=== PATIENT | male | born 1970 | race African-American/Black ===

== ENCOUNTER 2019-11-24 11:01 | Inpatient (IN) | payer MEDICARE, MEDICAID ==
[~2019-11-24] VITALS: Ht 170.2 cm; Wt 114.8 kg
[2019-11-24] MEDS ORDERED: AMLODIPINE BESY10 MG ORAL (11:11)
--- NOTE | 2019-11-24 11:15 | NUR ---
ED Nurse Note: Patient came into ED from Urgent care d/t tachycardia around 105. Patient had syncopal episode yesterday witnessed by , which lasted approximately 10 seconds. Patient AxO x 4, no s/s of acute distress. Patient on the cardiac nurse practitioner. Blood sent to lab.
--- NOTE | 2019-11-24 11:32 | Emergency Room Report ---
History of Present Illness General Chief Complaint: Palpitations Source: Patient Present Illness HPI Patient presents with reports of syncopal episode Patient had gone to an urgent care today reports that he had an evaluation the physician felt that his heart rate was too fast and patient sent to the ER Patient describes 2 episodes of syncope yesterday around noontime patient was walking in a grocery store Did not have any symptoms prior to the event And after the second syncopal episode went home Patient went today for routine checkup and was sent to the ER Denies any headache denies any focal weakness denies any change in speech Allergies: Coded Allergies: No Known Allergies (Unverified , 11/24/19) Patient History Past Medical History: see triage record Reviewed Nursing Documentation: PMH: Agreed; PSxH: Agreed Nursing Documentation-PMH Past Medical History: No History, Except For Hx Hypertension: Yes Review of Systems All Other Systems: negative except mentioned in HPI Physical Exam Vital Signs Date Time Temp Pulse Resp B/P (MAP) Pulse Ox O2 Delivery O2 Flow Rate FiO2 11/24/19 11:08 97.3 105 18 138/85 (102) 94 Room Air Sp02 EP Interpretation: reviewed, normal General Appearance: well appearing, no apparent distress Head: normocephalic, atraumatic Eyes: bilateral eye PERRL, bilateral eye EOMI ENT: hearing grossly normal, normal pharynx, TMs + canals normal, uvula midline Neck: full range of motion, supple, no meningismus, no bony tend Respiratory: lungs clear, normal breath sounds, no rhonchi, no respiratory distress, no retraction, no accessory muscle use Cardiovascular #1: normal peripheral pulses, regular rate, rhythm, no edema, no gallop, no JVD, no murmur Gastrointestinal: normal bowel sounds, non tender, soft, no mass, no organomegaly, non-distended, no guarding, no hernia, no pulsatile mass, no rebound Genitourinary: no CVA tenderness Musculoskeletal: normal inspection Neurologic: motor strength/tone normal, quality assurance coordinator III-XII nml as tested, oriented x3 , sensory intact, responsive Psychiatric: mood/affect normal Skin: no rash Lymphatic: normal inspection, no adenopathy Medical Decision Making Diagnostic Impression: Primary Impression: Syncope Additional Impression: Tachycardia ER Course Patient is a fairly complex patient with multiple differential to consideration including but not limited to cardiac cardiopulmonary and vascular emergencies Patient is oriented and GCS 15 does not meet criteria for CT head Given these findings patient's EKG however is abnormal Given the description of the symptoms and episodes will require further inpatient care Labs Test 11/24/19 11:43 11/24/19 17:55 11/24/19 19:00 11/25/19 10:45 White Blood Count 5.9 K/UL (4.8-10.8) Red Blood Count 5.00 M/UL (4.70-6.10) Hemoglobin 14.8 G/DL (14.2-18.0) Hematocrit 44.0 % (42.0-52.0) Mean Corpuscular Volume 88 FL (80-99) Mean Corpuscular Hemoglobin 29.6 PG (27.0-31.0) Mean Corpuscular Hemoglobin Concent 33.6 G/DL (32.0-36.0) Red Cell Distribution Width 13.4 % (11.6-14.8) Platelet Count 178 K/UL (150-450) Mean Platelet Volume 7.1 FL (6.5-10.1) Neutrophils (%) (Auto) 52.7 % (45.0-75.0) Lymphocytes (%) (Auto) 38.6 % (20.0-45.0) Monocytes (%) (Auto) 6.6 % (1.0-10.0) Eosinophils (%) (Auto) 1.1 % (0.0-3.0) Basophils (%) (Auto) 1.0 % (0.0-2.0) Sodium Level 140 MMOL/L (136-145) Potassium Level 3.5 MMOL/L (3.5-5.1) Chloride Level 102 MMOL/L (98-107) Carbon Dioxide Level 24 MMOL/L (21-32) Anion Gap 14 mmol/L (5-15) Blood Urea Nitrogen 6 mg/dL (7-18) Creatinine 0.7 MG/DL (0.55-1.30) Estimat Glomerular Filtration Rate > 60 mL/min (>60) Glucose Level 96 MG/DL (74-106) Calcium Level 8.9 MG/DL (8.5-10.1) Total Bilirubin 0.7 MG/DL (0.2-1.0) Aspartate Amino Transf (AST/SGOT) 121 U/L (15-37) Alanine Aminotransferase (ALT/SGPT) 57 U/L (12-78) Alkaline Phosphatase 94 U/L (46-116) Total Creatine Kinase 150 U/L (26-308) Troponin I 0.000 ng/mL (0.000-0.056) 0.000 ng/mL (0.000-0.056) Pro-B-Type Natriuretic Peptide 202 pg/mL (0-125) Total Protein 8.0 G/DL (6.4-8.2) Albumin 3.0 G/DL (3.4-5.0) Globulin 5.0 g/dL Albumin/Globulin Ratio 0.6 (1.0-2.7) Lipase 140 U/L (73-393) Erythrocyte Sedimentation Rate 46 MM/HR (0-20) Hemoglobin A1c 6.2 % (4.3-6.0) Vitamin B12 Level 518 PG/ML (193-986) Folate 4.7 NG/ML (8.6-58.9) Thyroid Stimulating Hormone (TSH) 6.550 uiU/mL (0.358-3.740) Rapid Plasma Reagin Non reactive (Non Reactive) Urine Opiates Screen Negative (NEGATIVE) Urine Barbiturates Screen Negative (NEGATIVE) Phencyclidine (PCP) Screen Negative (NEGATIVE) Urine Amphetamines Screen Negative (NEGATIVE) Urine Benzodiazepines Screen Negative (NEGATIVE) Urine Cocaine Screen Negative (NEGATIVE) Urine Marijuana (THC) Screen Positive (NEGATIVE) Test 11/25/19 19:00 11/26/19 03:11 Troponin I 0.006 ng/mL (0.000-0.056) 0.006 ng/mL (0.000-0.056) White Blood Count 5.3 K/UL (4.8-10.8) Red Blood Count 5.04 M/UL (4.70-6.10) Hemoglobin 14.7 G/DL (14.2-18.0) Hematocrit 43.9 % (42.0-52.0) Mean Corpuscular Volume 87 FL (80-99) Mean Corpuscular Hemoglobin 29.2 PG (27.0-31.0) Mean Corpuscular Hemoglobin Concent 33.5 G/DL (32.0-36.0) Red Cell Distribution Width 12.9 % (11.6-14.8) Platelet Count 142 K/UL (150-450) Mean Platelet Volume 8.2 FL (6.5-10.1) Neutrophils (%) (Auto) 55.5 % (45.0-75.0) Lymphocytes (%) (Auto) 32.6 % (20.0-45.0) Monocytes (%) (Auto) 9.5 % (1.0-10.0) Eosinophils (%) (Auto) 1.8 % (0.0-3.0) Basophils (%) (Auto) 0.6 % (0.0-2.0) Sodium Level 137 MMOL/L (136-145) Potassium Level 3.8 MMOL/L (3.5-5.1) Chloride Level 100 MMOL/L (98-107) Carbon Dioxide Level 24 MMOL/L (21-32) Anion Gap 13 mmol/L (5-15) Blood Urea Nitrogen 8 mg/dL (7-18) Creatinine 0.8 MG/DL (0.55-1.30) Estimat Glomerular Filtration Rate > 60 mL/min (>60) Glucose Level 102 MG/DL (74-106) Uric Acid 4.4 MG/DL (2.6-7.2) Calcium Level 9.6 MG/DL (8.5-10.1) Phosphorus Level 4.5 MG/DL (2.5-4.9) Magnesium Level 1.7 MG/DL (1.8-2.4) Iron Level 84 ug/dL (50-175) Total Iron Binding Capacity 265 ug/dL (250-450) Percent Iron Saturation 32 % (15-50) Unsaturated Iron Binding 181 ug/dL (112-346) Ferritin 595 NG/ML (8-388) Total Bilirubin 1.0 MG/DL (0.2-1.0) Aspartate Amino Transf (AST/SGOT) 79 U/L (15-37) Alanine Aminotransferase (ALT/SGPT) 44 U/L (12-78) Alkaline Phosphatase 83 U/L (46-116) Total Creatine Kinase 117 U/L (26-308) C-Reactive Protein, Quantitative 1.1 mg/dL (0.00-0.90) Pro-B-Type Natriuretic Peptide 94 pg/mL (0-125) Total Protein 7.8 G/DL (6.4-8.2) Albumin 3.0 G/DL (3.4-5.0) Globulin 4.8 g/dL Albumin/Globulin Ratio 0.6 (1.0-2.7) Triglycerides Level 96 MG/DL (30-150) Cholesterol Level 163 MG/DL (< 200) LDL Cholesterol 104 mg/dL (<100) HDL Cholesterol 46 MG/DL (40-60) Cholesterol/HDL Ratio 3.5 (3.3-4.4) Free Thyroxine 1.15 NG/DL (0.76-1.46) Free Triiodothyronine 3.4 pg/mL (2.3-4.2) EKG Diagnostic Results Rate: normal Rhythm: NSR ST Segments: other - Nonspecific ST and T wave changes Rhythm Strip Diag. Results EP Interpretation: yes Rate: 88 Rhythm: NSR, no PVC's, no ectopy Chest X-Ray Diagnostic Results Chest X-Ray Diagnostic Results : Chest X-Ray Ordered: Yes # of Views/Limited/Complete: 1 View Indication: Chest Pain EP Interpretation: Yes Interpretation: no consolidation, no effusion, no pneumothorax Impression: No acute disease Electronically Signed by: Sherry Mcnamara DO Last Vital Signs Date Time Temp Pulse Resp B/P (MAP) Pulse Ox O2 Delivery O2 Flow Rate FiO2 11/24/19 11:08 97.3 105 18 138/85 (102) 94 Room Air Status: improved Disposition: ADMITTED INPATIENT Condition: Serious Sherry Mcnamara DO Nov 24, 2019 11:32
[2019-11-24 11:45] VITALS: BP 138/85
[2019-11-24 12:09] LABS: EOSINOPHILS % (AUTO) 1.1 % (0.0-3.0); HEMOGLOBIN 14.8 G/DL (14.2-18.0); LYMPHOCYTES % (AUTO) 38.6 % (20.0-45.0); MEAN CORPUSCULAR VOLUME 88 FL (80-99); MONOCYTES % (AUTO) 6.6 % (1.0-10.0); NEUTROPHILS % (AUTO) 52.7 % (45.0-75.0); PLATELET COUNT 178 K/UL (150-450); RED CELL DISTRIBUTION WIDTH 13.4 % (11.6-14.8); WHITE BLOOD COUNT 5.9 K/UL (4.8-10.8)
[2019-11-24 12:31] LABS: ANION GAP 14 mmol/L (5-15); BLOOD UREA NITROGEN 6 mg/dL (7-18); CALCIUM 8.9 MG/DL (8.5-10.1); CARBON DIOXIDE 24 MMOL/L (21-32); CHLORIDE 102 MMOL/L (98-107); CREATININE 0.7 MG/DL (0.55-1.30); POTASSIUM 3.5 MMOL/L (3.5-5.1); SODIUM 140 MMOL/L (136-145)
[2019-11-24 12:43] LABS: ALANINE AMINOTRANSFERASE 57 U/L (12-78); ALBUMIN/GLOBULIN RATIO 0.6 (1.0-2.7); ALKALINE PHOSPHATASE 94 U/L (46-116); ASPARTATE AMINO TRANSFERASE 121 U/L (15-37); BILIRUBIN,TOTAL 0.7 MG/DL (0.2-1.0); CREATINE KINASE 150 U/L (26-308)
--- NOTE | 2019-11-24 12:46 | Diagnostic Imaging Report ---
Indication: Chest pain Technique: One view of the chest Comparison: none Findings: The heart is upper limits of normal in size. Lungs and pleural spaces are clear. Impression: No acute process
[2019-11-24 13:45] VITALS: BP 136/82
--- NOTE | 2019-11-24 14:40 | NUR ---
ED Nurse Note: Dr. Caldera at bedside.
[2019-11-24 15:00] VITALS: BP 132/80
--- NOTE | 2019-11-24 15:26 | NUR ---
ED Nurse Note: Report given to Shereen PEGUERO.
--- NOTE | 2019-11-24 15:40 | NUR ---
NURSE NOTES: Patient arrived on Tele floor at 15:40 via gurney, Received report from Thomas/RN. Patient is awake and alert x4, sitting on bed. On room air, no acute distress//SOB noted. Breathing even and unlabored. Able to make needs known, Denies pain at this time. IV on left hand patent and asymptomatic. Belonging check done with transferring nurse. playground monitor placed, Vital signs taken. Family at bed side. Will contact MD for admission order.
[2019-11-24 15:45] VITALS: BP 150/89
--- NOTE | 2019-11-24 16:30 | Consultation ---
Consult Note Consult Note NEUROLOGY CONSULTATION: HISTORY: Mr. Bertin Nino is a 49-year-old, right-handed, black gentleman, who has a long history of hypertension and borderline diabetes mellitus. He was functioning well until November 23, 2019 when he was getting out of his car and suddenly passed out. As per his who was with him he was out for about 10 seconds and then rapidly regained consciousness. A few minutes later he had a similar event. He denies any symptoms prior to these episodes of passing out and specifically denies any lightheadedness or dizziness. Following the episodes he rapidly regained consciousness and the mind was quite clear when he woke up. He denies any associated weakness on one side or the other, numbness on one side of the other, problems with speech, problems with language, problems with vision, or palpitations. He denies any prior episodes of loss of consciousness. PAST HISTORY: Hypertension for numerous years. Borderline diabetes mellitus for numerous years. Obesity. FAMILY HISTORY: Multiple family members have high blood pressure and diabetes mellitus. PERSONAL HISTORY: Home: He lives at home with his and 4 children. 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 Habits: He denies use of illicit drugs. He consumes approximately 20 cigarettes/day. He consumes large quantities of alcohol on weekends. PRESENT MEDICATIONS: He takes blood pressure medications at home the names of which she cannot remember. PHYSICAL EXAMINATION: GENERAL: He is a well-developed well-nourished obese black gentleman sitting up at the edge of his bed in no acute distress. VITAL SIGNS: Pulse: 102/min Blood pressure: 132/80 mmHg Temperature: 97.7 F Respirations: Per minute HEAD: Normocephalic and atraumatic. NECK: No neck rigidity was observed. EENT examination: Benign. NEUROLOGICAL EXAMINATION: MENTAL STATUS EXAMINATION: The patient was alert and awake. The patient was oriented to person and time. He had no idea of where he was located. The patient was able to recall 3/3 words immediately after 1 minute and after three minutes. The patient was able to remember Presidents Trump and Obama only. The patient's mathematical skills were paired. His visuospatial function was also impaired. SPEECH: No dysarthria was noted. LANGUAGE: He had an anomia for low-frequency words. However it is unclear what his educational level is. CRANIAL NERVE EXAMINATION: II: The visual lewis were intact on confrontation testing. III, IV, and : Extraocular movements were full. Pupils were 3 mm in diameter equal, round, regular, and reactive to light. V: Facial sensations were normal, and the temporales, masseters, and pterygoids functioned normally. VII: Facial expressions were normal and no facial asymmetry was noted. VIII: Hearing was normal bilaterally and no nystagmus was observed. IX: The palate moved symmetrically on phonation. X: No hoarseness of voice was observed. XI: The sternocleidomastoids and trapezii functioned normally. XII: The tongue was in the midline without any fasciculations or atrophy. MOTOR SYSTEM: The tone was normal in all four extremities. Examination of muscle mass revealed no focal wasting. Examination of power revealed G 5/5 power in all muscle groups. SENSORY EXAMINATION: Sensations to pin prick, light touch, and graphesthesia were normal. REFLEXES: 2++ and bilaterally symmetrical at the biceps, triceps, brachioradialis, and knees. 1++ at both ankles. The plantar responses were flexor bilaterally. COORDINATION: Svehgl-te-ymnf and bxqn-vo-wxtl testing were performed well. On Romberg test he swayed but did not fall to one side of the other. STANCE: Normal. GAIT: Normal regular gait. DIAGNOSTIC IMPRESSION: 1. Mr. Bertin Nino is a 49-year-old, right-handed, black gentleman, who has a long history of hypertension and borderline diabetes mellitus. On 11/23/2019 he had 2 episodes of passing out without any warning. He rapidly regained consciousness following those episodes. 2. On neurological examination, at this time, he is disoriented to his location, has problems with memory, has problems with higher cognitive function, has problems with visuospatial function, and has a mild anomia. He however does not demonstrate any focal or lateralizing findings on his neurological examination. 3. Patient's history and neurological examination are most consistent with 2 possible syncopal episodes 1 after the other lasting approximately 10 seconds at a time. The etiology for these episodes is unclear at this point in time. RECOMMENDATIONS: 1. The patient and his family were given an explanation of the above-mentioned findings. 2. The patient should have cardiac monitoring to determine if a cardiac arrhythmia was responsible for his episodes of loss of consciousness. 3. A cerebrovascular noninvasive profile should be performed to evaluate the patient for hemodynamically significant carotid disease. 4. He should be worked up thoroughly for treatable causes of syncope. 5. An EEG will be ordered to evaluate the patient for interictal phenomena. 6. The patient will be observed closely and depending on how he fares over the next day or so further recommendations will be given. Thank you for entrusting me with the care of Mr. Nino. I shall follow him with you. Jonathan Guerra M.D., M.S.P.H. Neurologist & Clinical Neurophysiologist Jonathan Guerra MD Nov 24, 2019 16:30
--- NOTE | 2019-11-24 19:45 | NUR ---
HAND-OFF: Report given to Irma/ALICIA, Patient in stable condition. Endorsed plan of care.
[2019-11-24 20:00] VITALS: BP 146/89
--- NOTE | 2019-11-24 21:20 | NUR ---
NURSE NOTES: Received pt from SUDHIR Dawson. Patient is awake and alert x4, sitting up in bed. On room air, no acute distress//SOB noted. Breathing even and unlabored. Able to make needs known, Denies pain at this time. Will continue plan of care
[2019-11-25] VITALS: BP 159/83
[2019-11-25 04:00] VITALS: BP 137/82
--- NOTE | 2019-11-25 04:30 | History and Physical Report ---
DATE OF ADMISSION: 11/24/2019 HISTORY OF PRESENT ILLNESS: The patient was admitted for basically a syncopal episode yesterday while grocery shopping. The patient also complained of palpitation, rule out tachycardia. The patient also has bilateral conjunctivitis. The patient was admitted for hypokalemia with syncopal episode. The patient denies chest pain. Denies nausea, vomiting, or diarrhea. No fever or chills. No shortness of breath. Denies cough. Denies cold symptoms. PAST MEDICAL HISTORY: Hypertension. PAST SURGICAL HISTORY: None. FAMILY HISTORY: Noncontributory. SOCIAL HISTORY: No history of smoking, alcohol, or illicit drugs. REVIEW OF SYSTEMS: HEENT: Denies headaches. PULMONARY: Denies shortness of breath. Denies cough. CARDIOVASCULAR: Denies chest pain. GASTROINTESTINAL: Denies nausea, vomiting, or diarrhea. EXTREMITIES: Denies pain. CENTRAL NERVOUS SYSTEM: Denies change in speech pattern. PHYSICAL EXAMINATION: VITAL SIGNS: Basically temperature 97.3, pulse is 104, blood pressure 138/85. HEENT: PERRLA. The patent has bilateral conjunctivitis. NECK: Supple. No lymphadenopathy. CHEST: Clear to auscultation. CARDIOVASCULAR: Tachycardic. GASTROINTESTINAL: Soft, nontender, nondistended. Positive bowel sounds. EXTREMITIES: Edema. Moves all four extremities. Sensory intact to light touch. The dorsal pedis pulses are present. LABORATORY DATA: WBC of 5.9, hemoglobin of 14.8, and platelets of 178,000. Sodium 140, potassium 3.4, chloride 102, glucose 96, BUN of 6, and creatinine 0.7. ASSESSMENT AND PLAN: Syncope, hypokalemia, rule out tachycardia, palpitation. I have asked basically Dr. Camilo, Dr. Farmer, and Dr. Guerra to see the patient for treatment of the low potassium as well as for syncopal workup. Sherry Caldera M.D. DR: Camelia JOB#: [id number] CC:
--- NOTE | 2019-11-25 07:55 | NUR ---
NURSE NOTES: Received report from Zaina/RN, Observed patient sitting up on bed, resting comfortably. On room air, no acute distress/SOB noted. IV on left hand 20G, patent, and asymptomatic. Bed in low position and locked, Bed alarm engaged, side-rails up x3. Call light within reach, Encouraged to use call light when needed. Will continue plan of care.
[2019-11-25 08:00] VITALS: BP 137/93
--- NOTE | 2019-11-25 08:04 | NUR ---
HAND-OFF: Report given to SUDHIR Regan.
--- NOTE | 2019-11-25 09:42 | Diagnostic Imaging Report ---
Indication: Reason For Exam: SYNCOPE, dizziness, headache Technique: Grayscale and duplex images of the extracranial carotid circulation were obtained Comparison: None Findings: Bilaterally, grayscale and duplex images demonstrate minimal atherosclerotic plaquing resulting in less than 50% diameter narrowing. Normal Doppler flow velocities and waveforms. Patent bilateral vertebral arteries, antegrade flow Impression: Less than 50% diameter stenosis bilaterally All stenosis was measured based on the NASCET criteria. Velocity criteria are extrapolated from diameter data as defined by the Society of radiologists in ultrasound consensus conference. Radiology 2003:229; 340-346
--- NOTE | 2019-11-25 09:57 | Cardiac Electrophysiology PN ---
Subjective Subjective [id number] Objective Last 24 Hour Vital Signs Date Time Temp Pulse Resp B/P (MAP) Pulse Ox O2 Delivery O2 Flow Rate FiO2 11/25/19 04:00 99.0 97 18 137/82 (100) 97 11/25/19 04:00 82 11/25/19 00:00 99.0 103 22 159/83 (108) 97 11/25/19 00:00 90 11/24/19 21:00 Room Air 11/24/19 20:00 99.0 111 22 146/89 (108) 97 11/24/19 20:00 106 11/24/19 16:00 Room Air 11/24/19 15:45 97.3 132 21 150/89 (109) 94 11/24/19 15:30 98.0 102 17 138/84 99 Room Air 11/24/19 15:00 97.7 102 18 132/80 98 Room Air 11/24/19 13:45 97.8 101 18 136/82 97 Room Air 11/24/19 11:45 97.3 104 18 138/85 94 Room Air 11/24/19 11:08 97.3 105 18 138/85 (102) 94 Room Air Intake and Output 11/24/19 11/25/19 19:00 07:00 Intake Total 0 ml Output Total 3 ml Balance 0 ml -3 ml Intake Oral 0 ml Output Urine Total 3 ml # Voids 1 # Bowel Movements 1 Laboratory Tests Test 11/24/19 11:43 11/24/19 17:55 11/24/19 19:00 White Blood Count 5.9 K/UL (4.8-10.8) Red Blood Count 5.00 M/UL (4.70-6.10) Hemoglobin 14.8 G/DL (14.2-18.0) Hematocrit 44.0 % (42.0-52.0) Mean Corpuscular Volume 88 FL (80-99) Mean Corpuscular Hemoglobin 29.6 PG (27.0-31.0) Mean Corpuscular Hemoglobin Concent 33.6 G/DL (32.0-36.0) Red Cell Distribution Width 13.4 % (11.6-14.8) Platelet Count 178 K/UL (150-450) Mean Platelet Volume 7.1 FL (6.5-10.1) Neutrophils (%) (Auto) 52.7 % (45.0-75.0) Lymphocytes (%) (Auto) 38.6 % (20.0-45.0) Monocytes (%) (Auto) 6.6 % (1.0-10.0) Eosinophils (%) (Auto) 1.1 % (0.0-3.0) Basophils (%) (Auto) 1.0 % (0.0-2.0) Sodium Level 140 MMOL/L (136-145) Potassium Level 3.5 MMOL/L (3.5-5.1) Chloride Level 102 MMOL/L (98-107) Carbon Dioxide Level 24 MMOL/L (21-32) Anion Gap 14 mmol/L (5-15) Blood Urea Nitrogen 6 mg/dL (7-18) L Creatinine 0.7 MG/DL (0.55-1.30) Estimat Glomerular Filtration Rate > 60 mL/min (>60) Glucose Level 96 MG/DL (74-106) Calcium Level 8.9 MG/DL (8.5-10.1) Total Bilirubin 0.7 MG/DL (0.2-1.0) Aspartate Amino Transf (AST/SGOT) 121 U/L (15-37) H Alanine Aminotransferase (ALT/SGPT) 57 U/L (12-78) Alkaline Phosphatase 94 U/L (46-116) Total Creatine Kinase 150 U/L (26-308) Troponin I 0.000 ng/mL (0.000-0.056) Pro-B-Type Natriuretic Peptide 202 pg/mL (0-125) H Total Protein 8.0 G/DL (6.4-8.2) Albumin 3.0 G/DL (3.4-5.0) L Globulin 5.0 g/dL Albumin/Globulin Ratio 0.6 (1.0-2.7) L Pending Lipase 140 U/L (73-393) Erythrocyte Sedimentation Rate 46 MM/HR (0-20) H Hemoglobin A1c 6.2 % (4.3-6.0) H Total Protein (PEP) Pending Albumin (PEP) Pending Globulin (PEP) Pending [id number]-[id number] Pending Qfvzv-8-Gtgrufgmy Pending Beta Globulins Pending Beta Gamma Globulin Pending PEP Abnormal Protein Bands Pending Protein Electrophoresis Interpret Pending Vitamin B12 Level 518 PG/ML (193-986) Vitamin D 25-Hydroxy Pending 25-Hydroxy Vitamin D2 Pending 25-Hydroxy Vitamin D3 Pending Folate 4.7 NG/ML (8.6-58.9) L Thyroid Stimulating Hormone (TSH) 6.550 uiU/mL (0.358-3.740) Rapid Plasma Reagin Pending Urine Opiates Screen Negative (NEGATIVE) Urine Barbiturates Screen Negative (NEGATIVE) Phencyclidine (PCP) Screen Negative (NEGATIVE) Urine Amphetamines Screen Negative (NEGATIVE) Urine Benzodiazepines Screen Negative (NEGATIVE) Urine Cocaine Screen Negative (NEGATIVE) Urine Marijuana (THC) Screen Positive (NEGATIVE) Wes Pereyra MD Nov 25, 2019 09:57
[2019-11-25 12:00] VITALS: BP 139/81
--- NOTE | 2019-11-25 13:22 | NUR ---
CASE MANAGEMENT:REVIEW 49 YR OLD MALE PRESENETD TO ER CC: SENT FROM URGENT CARE FOR SYNCOPE AND HIGH HEART RATE SI: SYNCOPE 97.4 105 18 138/85 94% ON RA ESR+46 TROPONIN(-) URINE(+) THC IS: CHEST XRAY : TO TELEMETRY IS: NORVASC PO BID CAROTID DUPLEX 2DECHO ORTHOSTATIC VS EEG PLAN: CARDIAC AND NEURO CONSULT
--- NOTE | 2019-11-25 14:05 | Consultation ---
Consult Note Consult Note asked to eval by Dr Baugh for BP management Patient presents with reports of syncopal episode Patient had gone to an urgent care today reports that he had an evaluation the physician felt that his heart rate was too fast and patient sent to the ER Patient describes 2 episodes of syncope yesterday around noontime patient was walking in a grocery store Did not have any symptoms prior to the event And after the second syncopal episode went home Patient went today for routine checkup and was sent to the ER Denies any headache denies any focal weakness denies any change in speech interviewed examined- data reviewed . Assessment/Plan HTN DM Obese Syncope ? Sz Forgetfulness Low folate Folic acid EEG Low CHO diet per consultants Waldo Farmer MD Nov 25, 2019 14:05
--- NOTE | 2019-11-25 15:45 | NUR ---
NURSE NOTES: Asked Dr. Caldera to have CT order. No new order at this time.
[2019-11-25 16:00] VITALS: BP 149/93
--- NOTE | 2019-11-25 16:30 | Consultation ---
DATE OF CONSULTATION: 11/25/2019 CARDIOLOGY CONSULTATION CONSULTING PHYSICIAN: Wes Camilo M.D. REFERRING PHYSICIAN: Sherry Caldera M.D. REASON FOR CONSULTATION: Syncope and tachycardia. HISTORY OF PRESENT ILLNESS: The patient is a 49-year-old gentleman with history of hypertension and borderline diabetes. He was getting out of his car and suddenly passed out. Per his , he was out for about 10 seconds and rapidly regained consciousness. Few minutes later, he had another similar event. The patient did not have any chest pain, palpitation, or shortness of breath. The patient was seen at Urgent Care and was sent to the hospital for further evaluation. The patient was also tachycardic. His EKG, however, shows sinus rhythm with left atrial enlargement and only sinus tachycardia with no acute ST-T wave abnormalities. At the time of my evaluation, the patient denies any chest pain, palpitation, or shortness of breath. The patient was already evaluated by neurologist, Dr. Guerra. REVIEW OF SYSTEMS: Review of systems was negative other than what was mentioned in history of present illness. PAST MEDICAL HISTORY: As mentioned above. FAMILY HISTORY: Noncontributory. SOCIAL HISTORY: Lives with his . Does not smoke or drink alcohol. PHYSICAL EXAMINATION: VITAL SIGNS: Blood pressure is 137/82, pulse is 82, respirations 18, and temperature is 100. HEAD AND NECK: Showed no JVD. LUNGS: Clear. CARDIOVASCULAR: Regular S1 and S2 with no gallop or murmur. ABDOMEN: Soft. EXTREMITIES: No pitting edema. LABORATORY AND DIAGNOSTIC DATA: His EKG shows sinus tachycardia at 104, left atrial enlargement, and poor R-wave progression. His labs show white count 5.9, hemoglobin of 14.8, hematocrit of 44, and platelet count of 178,000. Sodium 140, potassium 3.5, BUN of 16.7, and glucose of 96. Troponin is negative. TSH is 6.55. ASSESSMENT AND PLAN: 1. Status post two syncopal episodes of sudden onset. The patient never had prior history of syncope. We will completely rule out MO protocol and get echocardiogram as well as carotid duplex for further evaluation. The patient is also evaluated by Dr. Guerra. His urine toxicology screen is positive only for marijuana. 2. Hypertension. The patient does not remember the name of his blood pressure medications. We will start the patient on amlodipine 5 mg b.i.d., add p.r.n. clonidine as well. 3. Obesity. Thank you very much, Dr. Caldera, for allowing me to participate in the care of this patient. Please do not hesitate to contact me for any questions regarding my evaluation. Wes Camilo M.D. DR: CRISTOBAL JOB#: [id number] CC:
[2019-11-25] MEDS: Docusate 100mg cap ORAL SCH (17:13)
--- NOTE | 2019-11-25 18:24 | NUR ---
NURSE NOTES: Dr. Guerra stated no need for CT for syncope.
--- NOTE | 2019-11-25 18:36 | NUR ---
NURSE NOTES: Patient asked for Nicotine patch to Dr. Guerra. Dr. Guerra told me to ask Dr. Caldera. Asked Dr. Caldera, regarding nicotine patch, refused.
--- NOTE | 2019-11-25 18:40 | Neurology Progress Note ---
Interim History Interim History Interim History Mr. Bertin Nino is a 49-year-old, right-handed, black gentleman, who has a long history of hypertension and borderline diabetes mellitus. On 11/23/2019 he had 2 episodes of passing out without any warning. He rapidly regained consciousness following those episodes. He feels much better today. He denies any dizziness, lightheadedness, or sensation that he may pass out. He also feels that his mind is clearer. He is feeling jittery as he has not smoked since he has been in the hospital. He denies any new neurological symptoms. Review of Systems Neuro Review of Systems Benign. Objective Physical Exam Last Vital Signs Date Time Temp Pulse Resp B/P (MAP) Pulse Ox O2 Delivery O2 Flow Rate FiO2 11/25/19 17:13 84 149/93 11/25/19 16:00 97.9 18 99 11/25/19 09:00 Room Air Laboratory Tests Test 11/24/19 19:00 11/25/19 10:45 Urine Opiates Screen Negative (NEGATIVE) Urine Barbiturates Screen Negative (NEGATIVE) Phencyclidine (PCP) Screen Negative (NEGATIVE) Urine Amphetamines Screen Negative (NEGATIVE) Urine Benzodiazepines Screen Negative (NEGATIVE) Urine Cocaine Screen Negative (NEGATIVE) Urine Marijuana (THC) Screen Positive (NEGATIVE) H Troponin I 0.000 ng/mL (0.000-0.056) Neurologic Exam Objective PHYSICAL EXAMINATION: GENERAL: He is a well-developed well-nourished obese black gentleman sitting up at the edge of his bed in no acute distress. HEAD: Normocephalic and atraumatic. NECK: No neck rigidity was observed. EENT examination: Benign. NEUROLOGICAL EXAMINATION: MENTAL STATUS EXAMINATION: The patient was alert and awake. The patient was oriented to person and time. He could not remember the name of the hospital. The patient was able to recall 3/3 words immediately after 1 minute and after three minutes. The patient was able to remember [employer] through [facility]. The patient's mathematical skills were impaired. His visuospatial function was also impaired. SPEECH: No dysarthria was noted. LANGUAGE: He had an anomia for low-frequency words. However it is unclear what his educational level is. CRANIAL NERVE EXAMINATION: II: The visual lewis were intact on confrontation testing. III, IV, and : Extraocular movements were full. Pupils were 3 mm in diameter equal, round, regular, and reactive to light. V: Facial sensations were normal, and the temporales, masseters, and pterygoids functioned normally. VII: Facial expressions were normal and no facial asymmetry was noted. VIII: Hearing was normal bilaterally and no nystagmus was observed. IX: The palate moved symmetrically on phonation. X: No hoarseness of voice was observed. XI: The sternocleidomastoids and trapezii functioned normally. XII: The tongue was in the midline without any fasciculations or atrophy. MOTOR SYSTEM: The tone was normal in all four extremities. Examination of muscle mass revealed no focal wasting. Examination of power revealed G 5/5 power in all muscle groups. SENSORY EXAMINATION: Sensations to pin prick, light touch, and graphesthesia were normal. REFLEXES: 2++ and bilaterally symmetrical at the biceps, triceps, brachioradialis, and knees. 1++ at both ankles. The plantar responses were flexor bilaterally. COORDINATION: Hcjxoz-af-josp and jrmz-dy-xlzh testing were performed well. On Romberg test he swayed but did not fall to one side of the other. STANCE: Normal. GAIT: Normal regular gait. Impression/Recommendations Diagnostic Impression DIAGNOSTIC IMPRESSION: 1. Mr. Bertin Nino is a 49-year-old, right-handed, black gentleman, who has a long history of hypertension and borderline diabetes mellitus. On 11/23/2019 he had 2 episodes of passing out without any warning. He rapidly regained consciousness following those episodes. 2. He feels much better today. He denies any dizziness, lightheadedness, or sensation that he may pass out. He also feels that his mind is clearer. He is feeling jittery as he has not smoked since he has been in the hospital. He denies any new neurological symptoms. 3. On neurological examination, at this time, he is disoriented to his location, has problems with memory, has problems with higher cognitive function, has problems with visuospatial function, and has a mild anomia. He however does not demonstrate any focal or lateralizing findings on his neurological examination. 4. Patient's history and neurological examination are most consistent with 2 possible syncopal episodes 1 after the other lasting approximately 10 seconds at a time. The etiology for these episodes is unclear at this point in time. 5. He still has some cognitive dysfunction. This may be related to marijuana use that he did not disclose to me but was discovered on his urine toxicology screen. Recommendations RECOMMENDATIONS: 1. The patient was given an explanation of the above- mentioned findings. 2. He should be given a nicotine patch as he is withdrawing from nicotine. 3. Continue cardiac monitoring. 4. Await cerebrovascular noninvasive profile to evaluate for hemodynamically significant carotid disease. 5. Await EEG to evaluate for interictal phenomena. 6. Observ closely . Jonathan Guerra M.D., M.S.P.H. Neurologist & Clinical Neurophysiologist Jonathan Guerra MD Nov 25, 2019 18:40
--- NOTE | 2019-11-25 19:30 | NUR ---
HAND-OFF: Report given to Selene/RN, Patient is in stable condition, Endorsed plan of care.
--- NOTE | 2019-11-25 19:36 | NUR ---
NURSE NOTES: Received report from SUDHIR Regan, patient stable, AOx4, denies pain at this time, Iv site on right hand g20 asymptomatic, patent. Patient is currently having EEG, blood bank technician Diaz at bedside, bed low&locked, side rails upx3, call light within reach, will continue to monitor and reassess
[2019-11-25 20:00] VITALS: BP 144/97
--- NOTE | 2019-11-25 21:14 | General Progress Note ---
Assessment/Plan Problem List: (1) Syncope ICD Codes: R55 - Syncope and collapse SNOMED: 658679909 (2) Tachycardia ICD Codes: R00.0 - Tachycardia, unspecified SNOMED: 7818300 Status: progressing Assessment/Plan: sycope w/u in progress have consulted dr solano and dr ledesma afebrile tachycardia Subjective ROS Limited/Unobtainable: Yes Allergies: Coded Allergies: No Known Allergies (Unverified , 11/24/19) Objective Last 24 Hour Vital Signs Date Time Temp Pulse Resp B/P (MAP) Pulse Ox O2 Delivery O2 Flow Rate FiO2 11/25/19 17:13 84 149/93 11/25/19 16:00 84 11/25/19 16:00 97.9 94 18 149/93 (111) 99 11/25/19 12:00 81 11/25/19 12:00 97.9 81 16 139/81 (100) 98 11/25/19 09:00 Room Air 11/25/19 08:00 99 11/25/19 08:00 98.1 97 20 137/93 (108) 97 11/25/19 04:00 99.0 97 18 137/82 (100) 97 11/25/19 04:00 82 11/25/19 00:00 99.0 103 22 159/83 (108) 97 11/25/19 00:00 90 Intake and Output 11/24/19 11/25/19 19:00 07:00 Intake Total 0 ml Output Total 3 ml Balance 0 ml -3 ml Intake Oral 0 ml Output Urine Total 3 ml # Voids 1 # Bowel Movements 1 Laboratory Tests 11/25/19 10:45: Troponin I 0.000 11/25/19 19:00: Troponin I 0.006 Height (Feet): 5 Height (Inches): 7.00 Weight (Pounds): 253 Cardiovascular: normal rate Respiratory/Chest: lungs clear Abdomen: soft Sherry Caldera MD Nov 25, 2019 21:14
[2019-11-26] VITALS: BP 130/70
[2019-11-26 03:21] LABS: BASOPHILS % (AUTO) 0.6 % (0.0-2.0); EOSINOPHILS % (AUTO) 1.8 % (0.0-3.0); HEMATOCRIT 43.9 % (42.0-52.0); HEMOGLOBIN 14.7 G/DL (14.2-18.0); LYMPHOCYTES % (AUTO) 32.6 % (20.0-45.0); MEAN CORPUSCULAR VOLUME 87 FL (80-99); MONOCYTES % (AUTO) 9.5 % (1.0-10.0); NEUTROPHILS % (AUTO) 55.5 % (45.0-75.0); PLATELET COUNT 142 K/UL (150-450); RED BLOOD COUNT 5.04 M/UL (4.70-6.10); RED CELL DISTRIBUTION WIDTH 12.9 % (11.6-14.8); WHITE BLOOD COUNT 5.3 K/UL (4.8-10.8)
[2019-11-26 03:38] LABS: % IRON SATURATION 32 % (15-50); IRON 84 ug/dL (50-175); TOTAL IRON BINDING CAPACITY 265 ug/dL (250-450)
[2019-11-26 04:00] VITALS: BP 129/81
[2019-11-26 05:05] LABS: ALANINE AMINOTRANSFERASE 44 U/L (12-78); ALBUMIN/GLOBULIN RATIO 0.6 (1.0-2.7); ALKALINE PHOSPHATASE 83 U/L (46-116); ANION GAP 13 mmol/L (5-15); ASPARTATE AMINO TRANSFERASE 79 U/L (15-37); BLOOD UREA NITROGEN 8 mg/dL (7-18); CALCIUM 9.6 MG/DL (8.5-10.1); CARBON DIOXIDE 24 MMOL/L (21-32); CHLORIDE 100 MMOL/L (98-107); CHOLESTEROL 163 MG/DL (< 200); CREATINE KINASE 117 U/L (26-308); CREATININE 0.8 MG/DL (0.55-1.30); FERRITIN 595 NG/ML (8-388); HDL CHOLESTEROL 46 MG/DL (40-60); PHOSPHORUS 4.5 MG/DL (2.5-4.9); POTASSIUM 3.8 MMOL/L (3.5-5.1); SODIUM 137 MMOL/L (136-145); TRIGLYCERIDES 96 MG/DL (30-150)
--- NOTE | 2019-11-26 06:16 | NUR ---
NURSE NOTES: Mg 1.7 Dr. Caldera made aware
--- NOTE | 2019-11-26 06:56 | NUR ---
HAND-OFF: Report given to SUDHIR Her, patient in stable condition, plan of care endorsed.
--- NOTE | 2019-11-26 07:05 | NUR ---
NURSE NOTES: Received report from SUDHIR Mcfarlane. Pt lying in bed, sleeping. No s/sx of acute distress, no SOB observed. Pt breathing even and unlabored in RA. bed on lowest position, call light within reach. Will continue plan of care.
[2019-11-26 08:00] VITALS: BP 124/82
[2019-11-26] MEDS: Magnesium Oxide 400mg tab ORAL SCH ×3 (09:08→17:37)
[2019-11-26] MEDS: Docusate 100mg cap ORAL SCH ×3 (09:09→17:37)
[2019-11-26] MEDS: Aspirin Baby 81mg ORAL SCH (09:09)
--- NOTE | 2019-11-26 10:35 | Nephrology Progress Note ---
Assessment/Plan Problem List: (1) Syncope (2) Obesity (BMI 30-39.9) (3) DMII (diabetes mellitus, type 2) (4) HTN (hypertension) Assessment HTN DM Obese Syncope ? Sz Forgetfulness Low folate Plan Folic acid supplement EEG Low CHO diet per consultants Subjective ROS Limited/Unobtainable: No Constitutional: Reports: other - feels well Objective Objective Last 24 Hour Vital Signs Date Time Temp Pulse Resp B/P (MAP) Pulse Ox O2 Delivery O2 Flow Rate FiO2 11/26/19 09:09 83 124/82 11/26/19 08:30 Room Air 11/26/19 08:00 96.8 83 20 124/82 (96) 97 11/26/19 04:00 78 11/26/19 04:00 97.9 88 18 129/81 (97) 96 11/26/19 00:00 84 11/26/19 00:00 98.4 93 18 130/70 (90) 96 11/25/19 21:00 Room Air 11/25/19 20:00 105 11/25/19 20:00 98.6 83 19 144/97 (113) 98 11/25/19 17:13 84 149/93 11/25/19 16:00 84 11/25/19 16:00 97.9 94 18 149/93 (111) 99 11/25/19 12:00 81 11/25/19 12:00 97.9 81 16 139/81 (100) 98 Intake and Output 11/25/19 11/26/19 19:00 07:00 Intake Total 450 ml 200 ml Output Total 3 ml Balance 447 ml 200 ml Intake Oral 450 ml 200 ml Output Urine Total 3 ml # Voids 1 2 # Bowel Movements 1 Laboratory Tests 11/25/19 10:45: Troponin I 0.000 11/25/19 19:00: Troponin I 0.006 11/26/19 03:11: Troponin I 0.006, White Blood Count 5.3, Red Blood Count 5.04, Hemoglobin 14.7, Hematocrit 43.9, Mean Corpuscular Volume 87, Mean Corpuscular Hemoglobin 29.2, Mean Corpuscular Hemoglobin Concent 33.5, Red Cell Distribution Width 12.9, Platelet Count 142L, Mean Platelet Volume 8.2, Neutrophils (%) (Auto) 55.5, Lymphocytes (%) (Auto) 32.6, Monocytes (%) (Auto) 9.5, Eosinophils (%) (Auto) 1.8, Basophils (%) (Auto) 0.6, Sodium Level 137, Potassium Level 3.8, Chloride Level 100, Carbon Dioxide Level 24, Anion Gap 13, Blood Urea Nitrogen 8, Creatinine 0.8, Estimat Glomerular Filtration Rate > 60, Glucose Level 102, Uric Acid 4.4, Calcium Level 9.6, Phosphorus Level 4.5, Magnesium Level 1.7L, Iron Level 84, Total Iron Binding Capacity 265, Percent Iron Saturation 32, Unsaturated Iron Binding 181, Ferritin 595H, Total Bilirubin 1.0, Aspartate Amino Transf (AST/SGOT) 79H, Alanine Aminotransferase (ALT/SGPT) 44, Alkaline Phosphatase 83, Total Creatine Kinase 117, C-Reactive Protein, Quantitative 1.1H , Pro-B-Type Natriuretic Peptide 94, Total Protein 7.8, Albumin 3.0L, Globulin 4.8, Albumin/Globulin Ratio 0.6L, Triglycerides Level 96, Cholesterol Level 163 , LDL Cholesterol 104H, HDL Cholesterol 46, Cholesterol/HDL Ratio 3.5, Free Thyroxine 1.15, Free Triiodothyronine 3.4 Height (Feet): 5 Height (Inches): 7.00 Weight (Pounds): 253 Waldo Farmer MD Nov 26, 2019 10:35
[2019-11-26 12:00] VITALS: BP 127/84
--- NOTE | 2019-11-26 14:31 | NUR ---
PT EVALUATION/DISCHARGE NOTE Patient seen for initial evaluation. Patient demonstrates independence with all functional mobility without an assistive device, denied dizziness. Skilled inpatient PT intervention is not warranted as patient is independent with all mobility. Patient discharged from PT, Taina PEGUERO notified. Addendum: 11/26/19 at 1432 by ELVA REYES PT Amended: Links added.
--- NOTE | 2019-11-26 15:56 | Cardiac Electrophysiology PN ---
Assessment/Plan Assessment/Plan 1. Status post two syncopal episodes of sudden onset. The patient never had prior history of syncope. Ruled out for LA Echocardiogram showed Nl EF. FU by Dr. Guerra. His urine toxicology screen is positive only for marijuana. 2. Hypertension. On amlodipine 5 mg bid and p.r.n. clonidine 3. Obesity. Subjective Subjective Alert in NAD. No CP or SOB Objective Last 24 Hour Vital Signs Date Time Temp Pulse Resp B/P (MAP) Pulse Ox O2 Delivery O2 Flow Rate FiO2 11/26/19 12:00 97.7 101 18 127/84 (98) 97 11/26/19 11:38 105 11/26/19 09:09 83 124/82 11/26/19 08:30 Room Air 11/26/19 08:00 96.8 83 20 124/82 (96) 97 11/26/19 07:39 88 11/26/19 04:00 78 11/26/19 04:00 97.9 88 18 129/81 (97) 96 11/26/19 00:00 84 11/26/19 00:00 98.4 93 18 130/70 (90) 96 11/25/19 21:00 Room Air 11/25/19 20:00 105 11/25/19 20:00 98.6 83 19 144/97 (113) 98 11/25/19 17:13 84 149/93 11/25/19 16:00 84 11/25/19 16:00 97.9 94 18 149/93 (111) 99 Intake and Output 11/25/19 11/26/19 19:00 07:00 Intake Total 450 ml 200 ml Output Total 3 ml Balance 447 ml 200 ml Intake Oral 450 ml 200 ml Output Urine Total 3 ml # Voids 1 2 # Bowel Movements 1 Laboratory Tests Test 11/25/19 19:00 11/26/19 03:11 Troponin I 0.006 ng/mL (0.000-0.056) 0.006 ng/mL (0.000-0.056) White Blood Count 5.3 K/UL (4.8-10.8) Red Blood Count 5.04 M/UL (4.70-6.10) Hemoglobin 14.7 G/DL (14.2-18.0) Hematocrit 43.9 % (42.0-52.0) Mean Corpuscular Volume 87 FL (80-99) Mean Corpuscular Hemoglobin 29.2 PG (27.0-31.0) Mean Corpuscular Hemoglobin Concent 33.5 G/DL (32.0-36.0) Red Cell Distribution Width 12.9 % (11.6-14.8) Platelet Count 142 K/UL (150-450) L Mean Platelet Volume 8.2 FL (6.5-10.1) Neutrophils (%) (Auto) 55.5 % (45.0-75.0) Lymphocytes (%) (Auto) 32.6 % (20.0-45.0) Monocytes (%) (Auto) 9.5 % (1.0-10.0) Eosinophils (%) (Auto) 1.8 % (0.0-3.0) Basophils (%) (Auto) 0.6 % (0.0-2.0) Sodium Level 137 MMOL/L (136-145) Potassium Level 3.8 MMOL/L (3.5-5.1) Chloride Level 100 MMOL/L (98-107) Carbon Dioxide Level 24 MMOL/L (21-32) Anion Gap 13 mmol/L (5-15) Blood Urea Nitrogen 8 mg/dL (7-18) Creatinine 0.8 MG/DL (0.55-1.30) Estimat Glomerular Filtration Rate > 60 mL/min (>60) Glucose Level 102 MG/DL (74-106) Uric Acid 4.4 MG/DL (2.6-7.2) Calcium Level 9.6 MG/DL (8.5-10.1) Phosphorus Level 4.5 MG/DL (2.5-4.9) Magnesium Level 1.7 MG/DL (1.8-2.4) L Iron Level 84 ug/dL (50-175) Total Iron Binding Capacity 265 ug/dL (250-450) Percent Iron Saturation 32 % (15-50) Unsaturated Iron Binding 181 ug/dL (112-346) Ferritin 595 NG/ML (8-388) H Total Bilirubin 1.0 MG/DL (0.2-1.0) Aspartate Amino Transf (AST/SGOT) 79 U/L (15-37) H Alanine Aminotransferase (ALT/SGPT) 44 U/L (12-78) Alkaline Phosphatase 83 U/L (46-116) Total Creatine Kinase 117 U/L (26-308) C-Reactive Protein, Quantitative 1.1 mg/dL (0.00-0.90) H Pro-B-Type Natriuretic Peptide 94 pg/mL (0-125) Total Protein 7.8 G/DL (6.4-8.2) Albumin 3.0 G/DL (3.4-5.0) L Globulin 4.8 g/dL Albumin/Globulin Ratio 0.6 (1.0-2.7) L Triglycerides Level 96 MG/DL (30-150) Cholesterol Level 163 MG/DL (< 200) LDL Cholesterol 104 mg/dL (<100) H HDL Cholesterol 46 MG/DL (40-60) Cholesterol/HDL Ratio 3.5 (3.3-4.4) Free Thyroxine 1.15 NG/DL (0.76-1.46) Free Triiodothyronine 3.4 pg/mL (2.3-4.2) Objective HEAD AND NECK: Showed no JVD. LUNGS: Clear. CARDIOVASCULAR: Regular S1 and S2 with no gallop or murmur. ABDOMEN: Soft. EXTREMITIES: No pitting edema. Wes Camilo MD Nov 26, 2019 15:56
[2019-11-26 16:00] VITALS: BP 133/88
[2019-11-26 20:00] VITALS: BP 135/91
--- NOTE | 2019-11-26 20:00 | NUR ---
NURSE NOTES: RECEIVED PATIENT LYING IN BED, AWAKE, ALERT/ORIENTED X4,VERBALLY RESPONSIVE, DENIES PAIN. NO SIGNS AND SYMPTOMS OF ACUTE CARDIO RESPIRATORY DISTRESS/SHORTNESS OF BREATH, DENIES CHEST PAIN, NO PERIPHERAL EDEMA NOTED. SINUS RHYTHM ON HUNTER GUIDE. DENIES EPISODES OF SYNCOPE SINCE ADMISSION. ABDOMEN ROUND/OBESE, BOWEL SOUNDS AUDIBLE, DENIES CONSTIPATION/N/V, URINAL AT BEDSIDE/BRP. SIDE RAILS UP X2 FOR MOBILITY, BED IN LOWEST POSITION FOR SAFETY. CALL LIGHT WITHIN REACH AT ALL TIMES. CONTINUE WITH PLAN OF CARE. NAD.
--- NOTE | 2019-11-26 20:24 | NUR ---
HAND-OFF: Report given to SUDHIR Hardy. Pt in stable condition. Endorsed plan of care.
--- NOTE | 2019-11-26 20:50 | General Progress Note ---
Assessment/Plan Problem List: (1) Syncope ICD Codes: R55 - Syncope and collapse SNOMED: 511921052 (2) Tachycardia ICD Codes: R00.0 - Tachycardia, unspecified SNOMED: 6065439 Status: progressing Assessment/Plan: sycope w/u in progress r/o arrythnmia no chest pain and no sob tachycardia improved Subjective ROS Limited/Unobtainable: Yes Allergies: Coded Allergies: No Known Allergies (Unverified , 11/24/19) Objective Last 24 Hour Vital Signs Date Time Temp Pulse Resp B/P (MAP) Pulse Ox O2 Delivery O2 Flow Rate FiO2 11/26/19 17:37 110 133/88 11/26/19 16:00 98.1 110 19 133/88 (103) 96 11/26/19 15:28 94 11/26/19 12:00 97.7 101 18 127/84 (98) 97 11/26/19 11:38 105 11/26/19 09:09 83 124/82 11/26/19 08:30 Room Air 11/26/19 08:00 96.8 83 20 124/82 (96) 97 11/26/19 07:39 88 11/26/19 04:00 78 11/26/19 04:00 97.9 88 18 129/81 (97) 96 11/26/19 00:00 84 11/26/19 00:00 98.4 93 18 130/70 (90) 96 11/25/19 21:00 Room Air Intake and Output 11/25/19 11/26/19 19:00 07:00 Intake Total 450 ml 200 ml Output Total 3 ml Balance 447 ml 200 ml Intake Oral 450 ml 200 ml Output Urine Total 3 ml # Voids 1 2 # Bowel Movements 1 Laboratory Tests 11/26/19 03:11: White Blood Count 5.3, Red Blood Count 5.04, Hemoglobin 14.7, Hematocrit 43.9, Mean Corpuscular Volume 87, Mean Corpuscular Hemoglobin 29.2, Mean Corpuscular Hemoglobin Concent 33.5, Red Cell Distribution Width 12.9, Platelet Count 142L, Mean Platelet Volume 8.2, Neutrophils (%) (Auto) 55.5, Lymphocytes (%) (Auto) 32.6, Monocytes (%) (Auto) 9.5, Eosinophils (%) (Auto) 1.8, Basophils (%) (Auto ) 0.6, Sodium Level 137, Potassium Level 3.8, Chloride Level 100, Carbon Dioxide Level 24, Anion Gap 13, Blood Urea Nitrogen 8, Creatinine 0.8, Estimat Glomerular Filtration Rate > 60, Glucose Level 102, Uric Acid 4.4, Calcium Level 9.6, Phosphorus Level 4.5, Magnesium Level 1.7L, Iron Level 84, Total Iron Binding Capacity 265, Percent Iron Saturation 32, Unsaturated Iron Binding 181, Ferritin 595H, Total Bilirubin 1.0, Aspartate Amino Transf (AST/SGOT) 79H, Alanine Aminotransferase (ALT/SGPT) 44, Alkaline Phosphatase 83, Total Creatine Kinase 117, Troponin I 0.006, C-Reactive Protein, Quantitative 1.1H, Pro-B-Type Natriuretic Peptide 94, Total Protein 7.8, Albumin 3.0L, Globulin 4.8, Albumin/ Globulin Ratio 0.6L, Triglycerides Level 96, Cholesterol Level 163, LDL Cholesterol 104H, HDL Cholesterol 46, Cholesterol/HDL Ratio 3.5, Free Thyroxine 1.15, Free Triiodothyronine 3.4 Height (Feet): 5 Height (Inches): 7.00 Weight (Pounds): 253 Neck: supple Cardiovascular: normal rate Respiratory/Chest: lungs clear Sherry Caldera MD Nov 26, 2019 20:50
--- NOTE | 2019-11-26 23:05 | Neurology Progress Note ---
Interim History Interim History Interim History Mr. Bertin Nino is a 49-year-old, right-handed, black gentleman, who has a long history of hypertension and borderline diabetes mellitus. On 11/23/2019 he had 2 episodes of passing out without any warning. He rapidly regained consciousness following those episodes. He continues to feel much better. He denies any dizziness, lightheadedness, or sensation that he may pass out. He also feels that his mind is much more clearer. He is less jittery today. He denies any new neurological symptoms. Review of Systems Neuro Review of Systems Benign. Objective Physical Exam Last Vital Signs Date Time Temp Pulse Resp B/P (MAP) Pulse Ox O2 Delivery O2 Flow Rate FiO2 11/26/19 21:00 Room Air 11/26/19 20:00 104 11/26/19 17:37 133/88 11/26/19 16:00 98.1 19 96 Laboratory Tests Test 11/26/19 03:11 White Blood Count 5.3 K/UL (4.8-10.8) Red Blood Count 5.04 M/UL (4.70-6.10) Hemoglobin 14.7 G/DL (14.2-18.0) Hematocrit 43.9 % (42.0-52.0) Mean Corpuscular Volume 87 FL (80-99) Mean Corpuscular Hemoglobin 29.2 PG (27.0-31.0) Mean Corpuscular Hemoglobin Concent 33.5 G/DL (32.0-36.0) Red Cell Distribution Width 12.9 % (11.6-14.8) Platelet Count 142 K/UL (150-450) L Mean Platelet Volume 8.2 FL (6.5-10.1) Neutrophils (%) (Auto) 55.5 % (45.0-75.0) Lymphocytes (%) (Auto) 32.6 % (20.0-45.0) Monocytes (%) (Auto) 9.5 % (1.0-10.0) Eosinophils (%) (Auto) 1.8 % (0.0-3.0) Basophils (%) (Auto) 0.6 % (0.0-2.0) Sodium Level 137 MMOL/L (136-145) Potassium Level 3.8 MMOL/L (3.5-5.1) Chloride Level 100 MMOL/L (98-107) Carbon Dioxide Level 24 MMOL/L (21-32) Anion Gap 13 mmol/L (5-15) Blood Urea Nitrogen 8 mg/dL (7-18) Creatinine 0.8 MG/DL (0.55-1.30) Estimat Glomerular Filtration Rate > 60 mL/min (>60) Glucose Level 102 MG/DL (74-106) Uric Acid 4.4 MG/DL (2.6-7.2) Calcium Level 9.6 MG/DL (8.5-10.1) Phosphorus Level 4.5 MG/DL (2.5-4.9) Magnesium Level 1.7 MG/DL (1.8-2.4) L Iron Level 84 ug/dL (50-175) Total Iron Binding Capacity 265 ug/dL (250-450) Percent Iron Saturation 32 % (15-50) Unsaturated Iron Binding 181 ug/dL (112-346) Ferritin 595 NG/ML (8-388) H Total Bilirubin 1.0 MG/DL (0.2-1.0) Aspartate Amino Transf (AST/SGOT) 79 U/L (15-37) H Alanine Aminotransferase (ALT/SGPT) 44 U/L (12-78) Alkaline Phosphatase 83 U/L (46-116) Total Creatine Kinase 117 U/L (26-308) Troponin I 0.006 ng/mL (0.000-0.056) C-Reactive Protein, Quantitative 1.1 mg/dL (0.00-0.90) H Pro-B-Type Natriuretic Peptide 94 pg/mL (0-125) Total Protein 7.8 G/DL (6.4-8.2) Albumin 3.0 G/DL (3.4-5.0) L Globulin 4.8 g/dL Albumin/Globulin Ratio 0.6 (1.0-2.7) L Triglycerides Level 96 MG/DL (30-150) Cholesterol Level 163 MG/DL (< 200) LDL Cholesterol 104 mg/dL (<100) H HDL Cholesterol 46 MG/DL (40-60) Cholesterol/HDL Ratio 3.5 (3.3-4.4) Free Thyroxine 1.15 NG/DL (0.76-1.46) Free Triiodothyronine 3.4 pg/mL (2.3-4.2) Neurologic Exam Objective PHYSICAL EXAMINATION: GENERAL: He is a well-developed well-nourished obese black gentleman sitting up at the edge of his bed in no acute distress. HEAD: Normocephalic and atraumatic. NECK: No neck rigidity was observed. EENT examination: Benign. NEUROLOGICAL EXAMINATION: MENTAL STATUS EXAMINATION: The patient was alert and awake. The patient was oriented to person, place and time. The patient was able to recall 3/3 words immediately after 1 minute and after three minutes. The patient was able to remember Presidents Trump through Lyman Marshall. The patient's mathematical skills were impaired. His visuospatial function was also impaired. SPEECH: No dysarthria was noted. LANGUAGE: He had an anomia for low-frequency words. However it is unclear what his educational level is. CRANIAL NERVE EXAMINATION: II: The visual lewis were intact on confrontation testing. III, IV, and : Extraocular movements were full. Pupils were 3 mm in diameter equal, round, regular, and reactive to light. V: Facial sensations were normal, and the temporales, masseters, and pterygoids functioned normally. VII: Facial expressions were normal and no facial asymmetry was noted. VIII: Hearing was normal bilaterally and no nystagmus was observed. IX: The palate moved symmetrically on phonation. X: No hoarseness of voice was observed. XI: The sternocleidomastoids and trapezii functioned normally. XII: The tongue was in the midline without any fasciculations or atrophy. MOTOR SYSTEM: The tone was normal in all four extremities. Examination of muscle mass revealed no focal wasting. Examination of power revealed G 5/5 power in all muscle groups. SENSORY EXAMINATION: Sensations to pin prick, light touch, and graphesthesia were normal. REFLEXES: 2++ and bilaterally symmetrical at the biceps, triceps, brachioradialis, and knees. 1++ at both ankles. The plantar responses were flexor bilaterally. COORDINATION: Htjcvt-oy-[id number] and uqfh-hu-xkml testing were performed well. On Romberg test he swayed but did not fall to one side of the other. STANCE: Normal. GAIT: Normal regular gait. Impression/Recommendations Diagnostic Impression DIAGNOSTIC IMPRESSION: 1. Mr. Bertin Nino is a 49-year-old, right-handed, black gentleman, who has a long history of hypertension and borderline diabetes mellitus. On 11/23/2019 he had 2 episodes of passing out without any warning. He rapidly regained consciousness following those episodes. 2. He He continues to feel much better. He denies any dizziness, lightheadedness, or sensation that he may pass out. He also feels that his mind is much more clearer. He is less jittery today. He denies any new neurological symptoms. 3. On neurological examination, at this time, he has problems with memory, has problems with higher cognitive function, has problems with visuospatial function, and has a mild anomia. He however does not demonstrate any focal or lateralizing findings on his neurological examination. 4. The EEG performed on 11/25/2019 was normal in the awake state. 5. The carotid duplex scan revealed less than 50% stenosis of both internal carotid arteries. 6. Patient's history, neurological examination, laboratory data and EEG are most consistent with 2 possible syncopal episodes 1 after the other lasting approximately 10 seconds at a time. The etiology for these episodes is unclear at this point in time. 7. He still has some cognitive dysfunction. This may be related to marijuana use that he did not disclose to me but was discovered on his urine toxicology screen. His cognitive function has improved minimally. Recommendations RECOMMENDATIONS: 1. The patient was given an explanation of the above- mentioned findings. 2. He was told to stop smoking tobacco and marijuana. 3. No further neurological interventions are necessary. Jonathan Guerra M.D., M.S.P.H. Neurologist & Clinical Neurophysiologist Jonathan Guerra MD Nov 26, 2019 23:05
[2019-11-27] VITALS: BP 130/88
--- NOTE | 2019-11-27 01:30 | Electroencephalogram ---
DATE OF PROCEDURE: 11/25/2019 REQUESTING PHYSICIAN: Sherry Caldera M.D. READING PHYSICIAN: Jonathan Guerra M.D. PROCEDURE PERFORMED: Electroencephalogram. HISTORY: This EEG was performed on a 49-year-old gentleman with a history of multiple medical problems, who had multiple brief episodes of loss of consciousness. The purpose of this EEG was to evaluate the patient for ictal or inter-ictal phenomena. TECHNICAL NOTE: This EEG was performed on a [employer] with electrodes placed on the scalp according to the International 10-20 system. Ixwid-[id number] and kttrw-hp-woz montages were used. The EEG was technically satisfactory and was performed in the awake state only. OBSERVATIONS: In the reportedly awake state, the background activity consisted of 8-8.5 Hz posteriorly predominant well-developed alpha waveforms, which attenuated on eye opening. No focal abnormalities or epileptiform discharges were seen. IMPRESSION: Normal awake EEG. Jonathan Guerra M.D., M.S.P.H. Clinical Neurophysiologist DR: GHAZALA JOB#: [id number] [email or web address]
[2019-11-27 04:00] VITALS: BP 129/78
--- NOTE | 2019-11-27 06:43 | NUR ---
NURSE NOTES: RESTED WELL, NO SIGNIFICANT CHANGE OF CONDITION NOTED THROUGHOUT THE NIGHT. SAFETY MAINTAINED. NAD.
--- NOTE | 2019-11-27 07:40 | NUR ---
NURSE NOTES: Received report from Hayley PEGUERO. Pt in bed awake and orientedx4 and able to make needs known. IV site in R hand 20G SL patent and asymptomatic. Call light within easy reach. Side railsx3 up for safety. Denied SOB or dizziness. Bed in it's lowest position and locked. HOB elevated. Will continue to plan of care.
[2019-11-27 08:00] VITALS: BP 112/82
[2019-11-27] MEDS: Docusate 100mg cap ORAL SCH ×3 (09:00→09:19)
[2019-11-27 09:14] VITALS: BP 112/82
[2019-11-27] MEDS: Aspirin Baby 81mg ORAL SCH (09:15)
[2019-11-27] MEDS: Magnesium Oxide 400mg tab ORAL SCH (09:15)
--- NOTE | 2019-11-27 10:47 | Nephrology Progress Note ---
Assessment/Plan Problem List: (1) Syncope (2) Obesity (BMI 30-39.9) (3) DMII (diabetes mellitus, type 2) (4) HTN (hypertension) Assessment HTN DM Obese Syncope ? Sz Forgetfulness Low folate Plan Folic acid supplement EEG Low CHO diet per consultants stable from renal stand Subjective ROS Limited/Unobtainable: No Constitutional: Reports: malaise Objective Objective Last 24 Hour Vital Signs Date Time Temp Pulse Resp B/P (MAP) Pulse Ox O2 Delivery O2 Flow Rate FiO2 11/27/19 09:14 107 112/82 11/27/19 08:37 Room Air 11/27/19 08:00 107 11/27/19 08:00 98.1 75 20 112/82 (92) 95 11/27/19 04:00 98.5 87 16 129/78 (95) 98 11/27/19 04:00 83 11/27/19 00:00 86 11/27/19 00:00 97.8 96 16 130/88 (102) 97 11/26/19 21:00 Room Air 11/26/19 20:00 95 91 90 11/26/19 20:00 104 11/26/19 20:00 97.3 95 16 135/91 (106) 98 11/26/19 17:37 110 133/88 11/26/19 16:00 98.1 110 19 133/88 (103) 96 11/26/19 15:28 94 11/26/19 12:00 97.7 101 18 127/84 (98) 97 11/26/19 11:38 105 Intake and Output 11/26/19 11/27/19 19:00 07:00 Intake Total 980 ml 360 ml Balance 980 ml 360 ml Intake Oral 980 ml 360 ml # Voids 5 4 # Bowel Movements 1 Current Medications Medications (Trade) Dose Ordered Sig/Guy Route PRN Reason Start Time Stop Time Status Last Admin Dose Admin Acetaminophen (Tylenol) 650 mg Q4H PRN ORAL Mild Pain/Temp > 100.5 11/24/19 15:30 12/24/19 15:29 11/26/19 16:55 Amlodipine Besylate (Norvasc) 5 mg BID ORAL 11/25/19 18:00 12/25/19 17:59 11/27/19 09:14 Aspirin (ASA) 81 mg DAILY ORAL 11/26/19 09:00 3/14/20 08:59 11/27/19 09:15 Clonidine HCl (Catapres Tab) 0.1 mg Q4H PRN ORAL For High Blood Pressure 11/25/19 14:15 12/25/19 10:44 Docusate Sodium (Colace) 100 mg THREE TIMES A DAY ORAL 11/25/19 18:00 12/25/19 17:59 11/26/19 09:09 Folic Acid (Folate) 3 mg DAILY ORAL 11/25/19 14:15 12/25/19 14:14 11/27/19 09:14 Magnesium Oxide (Mag-Ox 400mg) 400 mg THREE TIMES A DAY ORAL 11/26/19 09:00 12/26/19 08:59 11/27/19 09:15 Pantoprazole (Protonix) 40 mg EVERY 12 HOURS ORAL 11/25/19 21:00 12/25/19 20:59 11/27/19 09:15 Height (Feet): 5 Height (Inches): 7.00 Weight (Pounds): 253 General Appearance: no apparent distress Cardiovascular: normal rate Respiratory/Chest: decreased breath sounds Abdomen: soft Waldo Farmer MD Nov 27, 2019 10:47
--- NOTE | 2019-11-27 11:16 | Cardiac Electrophysiology PN ---
Assessment/Plan Assessment/Plan 1. Status post two syncopal episodes of sudden onset. No prior history of syncope. Ruled out for [place] Echocardiogram showed Nl EF. FU by Dr. Guerra. His urine toxicology screen is positive only for marijuana. 2. Hypertension. On amlodipine 5 mg bid and p.r.n. clonidine 3. Obesity. DW RN and at bedside Subjective Subjective Alert in NAD. No CP or SOB. at bedside. Wants to go home. Objective Last 24 Hour Vital Signs Date Time Temp Pulse Resp B/P (MAP) Pulse Ox O2 Delivery O2 Flow Rate FiO2 11/27/19 09:14 107 112/82 11/27/19 08:37 Room Air 11/27/19 08:00 107 11/27/19 08:00 98.1 75 20 112/82 (92) 95 11/27/19 04:00 98.5 87 16 129/78 (95) 98 11/27/19 04:00 83 11/27/19 00:00 86 11/27/19 00:00 97.8 96 16 130/88 (102) 97 11/26/19 21:00 Room Air 11/26/19 20:00 95 91 90 11/26/19 20:00 104 11/26/19 20:00 97.3 95 16 135/91 (106) 98 11/26/19 17:37 110 133/88 11/26/19 16:00 98.1 110 19 133/88 (103) 96 11/26/19 15:28 94 11/26/19 12:00 97.7 101 18 127/84 (98) 97 11/26/19 11:38 105 Intake and Output 11/26/19 11/27/19 19:00 07:00 Intake Total 980 ml 360 ml Balance 980 ml 360 ml Intake Oral 980 ml 360 ml # Voids 5 4 # Bowel Movements 1 Objective HEAD AND NECK: No JVD. LUNGS: Clear. CARDIOVASCULAR: Regular S1 and S2 with no gallop or murmur. ABDOMEN: Soft. EXTREMITIES: No pitting edema. Wes Camilo MD Nov 27, 2019 11:16
--- NOTE | 2019-11-27 11:45 | NUR ---
Discharge: Patient is being discharged from medical care. Awake, alert and oriented x4. After care instructions, including referral to community resources were given. Patient verbalized understanding of After care instructions; at this time patient does not request medications, equipment or placement. Patient will be discharged to home with his at the bedside. Denied SOB, Chest pain or dizziness. Patient signed patient consent in the medical record for patient destination upon discharge. All medical devices such as IV, software applications designer and ID band were removed. Patient ambulated out with all personal belongings with steady gait with his .
--- NOTE | 2019-11-27 14:27 | NUR ---
*-*DISCHARGED PLANNED*-* PATIENT HAS BEEN ACCEPTED TO: [facility] P: [phone] F: [phone]
--- NOTE | 2019-11-29 13:22 | Discharge Summary ---
Discharge Summary Discharge Summary _ DATE OF ADMISSION: 11/24/2019 DATE OF DISCHARGE: 11/27/2019 DISCHARGED BY: Dr. Sherry Fonseca CONSULTANTS: Dr. Jonathan Camilo BRIEF HOSPITAL COURSE: Patient is a 49-year-old male, who presented to ED due to reported syncopal episode. Patient presented to an urgent care and on evaluation, heart rate was too fast, patient was sent to the ER. Patient had 2 episodes of syncope the day prior while walking in a grocery store. He did not have any symptoms prior to that event. Second episode was when he went home. He has medical history significant for hypertension and diabetes. Upon evaluation at the ED, blood pressure was stable. Heart rate was slightly elevated. Blood work did not show any leukocytosis. Electrolytes were normal. Troponin negative. He was admitted for evaluation of syncope. He underwent neuro evaluation. On neuro evaluation, he is disoriented to his location. Has problems with memory, problems with cognitive function, problems with visual-spatial function and mild anomia. He did not demonstrate any focal or lateralizing findings. He underwent cardiac evaluation. EKG showed sinus rhythm with left atrial enlargement and sinus tachycardia with no acute ST to T wave abnormalities. Patient denied any chest pain, palpitations or shortness of breath. Patient was unable to recall the name of his blood pressure medication. He was started on amlodipine and PRN clonidine. Echocardiogram showed normal ejection fraction. Urine toxicology was positive for marijuana. He was noted to have electrolyte imbalance. He was given folic acid supplements. EEG performed was normal in the awake state. Carotid duplex scan showed less than 50% stenosis on both internal carotid arteries. Cognitive dysfunction may be related to marijuana use. Cognitive function has improved minimally. He was counseled to stop smoking tobacco and marijuana. RPR was negative. He was eventually cleared for discharge home. FINAL DIAGNOSES: Syncope Hypertension Obesity Diabetes mellitus type 2 Low folate Marijuana use Tobacco use Tachycardia DISPOSITION: Home with home health. DISCHARGE MEDICATIONS: Refer to Discharge Medication List. DISCHARGE INSTRUCTIONS: Follow-up in a week. I have been assigned to complete a discharge summary on this account, I was not involved with the patient's management.--MARY KAY Graham Jacqueline Robles NP Nov 29, 2019 13:22
== END 2019-11-27 11:46 | disposition home or self-care (01) | DRG 310 ==
LOC: EMR 11:50 → EDBEDREQ 15:02 → 2E 15:08
DX: R00.0 Tachycardia, unspecified (principal); R55 Syncope and collapse; I10 Essential (primary) hypertension; E66.9 Obesity, unspecified; E11.9 Type 2 diabetes mellitus without complications; F17.200 Nicotine dependence, unspecified, uncomplicated; E53.8 Deficiency of other specified B group vitamins; R41.3 Other amnesia; Z68.30 Body mass index [BMI] 30.0-30.9, adult; H10.9 Unspecified conjunctivitis
CPT/HCPCS: 36415; 71045; 80053; 80061; 80307; 82306; 82550; 82607; 82728; 82746; 82962; 83036; 83540; 83550; 83690; 83735; 83880; 84100; 84165; 84439; 84443; 84481; 84484; 84550; 85025; 85651; 86140; 86592; 93005; 93306; 93880; 95819; 99285